=== PATIENT | female | born 1995 | race Caucasian/White ===

== ENCOUNTER 2016-11-26 14:08 | Emergency (ER) | payer BC ==
[~2016-11-26] VITALS: Ht 172.7 cm; Wt 58.2 kg
[~2016-11-26 14:08] MED LIST: FLUO10CA48 PO; MULT-506 PO
[2016-11-26 14:14] VITALS: TEMP 36.7; Ht 172.7 cm; Wt 58.2 kg
[2016-11-26] MEDS ORDERED: SODIUM CHLORIDE 0.9% 1000ML 1,000 ML IV STA (14:36)
[2016-11-26] MEDS ORDERED: ONDANSETRON INJ 2 MG/ML 2 ML VIAL IV STA (14:36)
[2016-11-26] MEDS ORDERED: RANITIDINE HCL 50 MG/100 ML D5W IV STA (14:36)
[2016-11-26 14:49] VITALS: O2SAT 100
--- NOTE | 2016-11-26 14:54 | EMERGENCY ROOM VISIT NOTE ---
ED Visit Note First contact with patient: 14:28 CHIEF COMPLAINT: Allergic reaction HISTORY OF PRESENT ILLNESS: This is a 21-year-old female with a patient presents to the emergency department after they developed sudden onset of lip tingling and itching itching all over. Patient states she ate something from the [employer] that she believes had peanuts in it, she has a peanut allergy and she immediately felt symptoms after she started eating it. The patient does not have swelling of the face or lips and does not have a sensation of swelling in the throat. The patient has not had shortness of breath. Has had previous reactions and like this before. The patient has tried Benadryl 75 mg, with some improvement. There has been no change in the patient's soaps, detergents, foods, medications, or other environmental factors. Patient states she was starting to feel better but had been speaking with her mother, who wanted her to come to the emergency department to be checked out. REVIEW OF SYSTEMS: A review of systems was performed with positives and pertinent negatives listed in the history of present illness. All other systems were reviewed and are negative. ALLERGIES: Peanuts MEDICATIONS: control pills PMH: No significant PMH SOCIAL HISTORY: [employer] student, denies tobacco and alcohol. PHYSICAL EXAM:VITALS: Vitals are noted on the nurse's note and reviewed by myself. Vital signs stable, afebrile, mildly tachycardic. GENERAL: Pleasant and cooperative, in no acute distress, non-diaphoretic, well- developed well-nourished. THROAT: No pharyngeal edema or injection, no exudates or tonsillar hypertrophy. No tongue swelling. Airway patent. LUNGS: Clear to auscultation and breath sounds equal, no wheezes, rales, or rhonchi. EYES: PERRLA, EOMI, no discharge or injection. NEUROLOGICAL: Alert and oriented to person, place, and time. Normal sensation to light and sharp touch. HEART: Regular rate without murmurs, ectopy, gallops, or rubs. SKIN: [place], warm, dry. No rash noted. The lips are not swollen. There is no periorbital swelling. EMERGENCY DEPARTMENT COURSE: I examined the patient. The patient was given IV fluid bolus and IV ranitidine. She was monitored on the commercial [employer] professional for more than one hour without any event. Tachycardia resolved after IV fluids. She felt much improved and was discharged in stable condition with strict return precautions. Problem List Surgical Problems: (1) History of appendectomy Status: Resolved Current/Historical Medications Scheduled Control Pills ( Control Pills), 1 TAB PO DAILY Allergies Uncoded Allergies: PEANUTS (Allergy, Unknown, ANAPHYLAXIS, 07/07/13) Vital Signs Date Time Temp Pulse Resp B/P (MAP) Pulse Ox O2 Delivery O2 Flow Rate FiO2 11/26/16 15:46 51 18 104/64 100 11/26/16 14:49 100 Room Air 11/26/16 14:14 36.7 95 16 122/77 100 Room Air Medications Administered Medications (Trade) Dose Ordered Sig/Sixto Route Start Time Stop Time Status Last Admin Dose Admin Ranitidine HCl (zANTac IV) 50 mg NOW STAT IV 11/26/16 14:36 11/26/16 14:38 DC 11/26/16 14:46 50 MG Ondansetron HCl (Zofran Inj) 4 mg NOW STAT IV 11/26/16 14:36 11/26/16 14:38 DC 11/26/16 14:45 4 MG Sodium Chloride 1,000 ml @ 999 mls/hr Q1H1M STAT IV 11/26/16 14:36 11/26/16 15:36 DC 11/26/16 14:46 999 MLS/HR Departure Information Impression Primary Impression: Allergic reaction Dispostion Home / Self-Care Condition GOOD Referrals [facility] (PCP) Patient Instructions My [facility] Additional Instructions You may continue to take Benadryl 50 mg every 6 hrs as needed for itching. Try to stay cool as much as possible, avoid hot showers or heavy sweating, as this may make your reaction worse. Follow-up with your family doctor if symptoms persist. Please return to the emergency department for any worsening symptoms, including chest pain, trouble breathing, throat swelling, wheezing, swelling in your lips , face, or tongue, difficulty swallowing, persistent vomiting, or any other concerns. Problem Qualifiers Primary Impression: Allergic reaction Encounter type: initial encounter Qualified Codes: T78.40XA - Allergy, unspecified, initial encounter
[2016-11-26] MEDS ORDERED: BCPILLS PO (15:09)
[2016-11-26 15:46] VITALS: BP 104/64; PULSE 51; O2SAT 100
== END 2016-11-26 15:46 | disposition home or self-care (01) ==
LOC: C.EDB 14:09 → C.EDD 15:46
DX: T78.40XA Allergy, unspecified, initial encounter (principal); X58.XXXA Exposure to other specified factors, initial encounter; Z79.3 Long term (current) use of hormonal contraceptives